=== PATIENT | female | born 1950 | race Caucasian/White ===

== ENCOUNTER → 2017-02-16 | Outpatient (CLI) | payer OTHER ==
--- NOTE | 2017-02-16 13:34 | CT ---
HISTORY: Screening Cardiac calcium scoring. Technique: Multiple axial images of the chest were obtained on a [address] from the aortic arch to the base of the heart with noncontrast prospective gating. AEC was utilized. Findings: A total calcium score of 327 is observed. The patient is between the 75th and 90th percentile for a ge and sex with definite, at least moderate, atherosclerotic plaque identified and mild Coronary art erik disease highly likely with significant narrowings possible. Surrounding soft tissues and osseous structures are grossly unremarkable. IMPRESSION: Elevated Coronary calcium score as above. Reported By:
== END ==
LOC: RAD 09:23
PROVIDERS: ATTEND Internal Medicine
DX: Z13.6 Encounter for screening for cardiovascular disorders (principal)